=== PATIENT | female | born 2000 | race African-American/Black ===

== ENCOUNTER 2021-07-22 08:40 | Observation (INO) | payer BC ==
[~2021-07-22 08:40] MED LIST: ALBU17AE26 IH; ALBU2SYR3 PO
[2021-07-22 11:44] LABS: BILIRUBIN,URINE NEGATIVE (NEGATIVE); BLOOD, URINE NEGATIVE (NEGATIVE); COLOR,URINE YELLOW (YELLOW); GLUCOSE,URINE NEGATIVE (NEGATIVE); KETONES,URINE NEGATIVE (NEGATIVE); LEUKOCYTE ESTERASE ,URINE NEGATIVE (NEGATIVE); NITRITE, URINE NEGATIVE (NEGATIVE); PROTEIN URINE NEGATIVE (NEGATIVE); UROBILINOGEN,URINE 0.2 (0.2-1.0)
[2021-07-22 11:58] LABS: CLARITY/URINE CLEAR (CLEAR)
[2021-07-22] MEDS ORDERED: ACETAMINOPHEN 325 MG TABLET PO ONE (12:00)
[2021-07-22] MEDS ORDERED: ACETAMINOPHEN 325 MG TABLET ONE (12:05)
== END 2021-07-22 12:50 | disposition home or self-care (01) ==
LOC: SPU 08:40
PROVIDERS: ADMIT Obstetrics & Gynecology; ATTEND Obstetrics & Gynecology
DX: O26.892 Other specified pregnancy related conditions, second trimester (principal); R10.9 Unspecified abdominal pain; O36.8120 Decreased fetal movements, second trimester, not applicable or unspecified; Z3A.27 27 weeks gestation of pregnancy
CPT/HCPCS: 81003; G0378; 81002

== ENCOUNTER 2021-10-18 19:55 | Emergency (ER) | payer BC ==
[~2021-10-18] VITALS: Ht 154.9 cm; Wt 77.1 kg
[2021-10-18] MEDS ORDERED: ALBUTEROL SULFATE 0.083% 2.5 MG/3 ML VIAL.NEB INH ONE ×2 (20:12→20:15)
[2021-10-18] MEDS ORDERED: IPRATROPIUM BROM 0.5 MG/2.5 ML VIAL.NEB (ATROVENT) INH ONE ×2 (20:12→20:15)
[2021-10-18] MEDS ORDERED: predniSONE 20 MG TABLET PO ONE (20:15)
[2021-10-18] MEDS ORDERED: ALBMDI INH (20:56)
[2021-10-18] MEDS ORDERED: PRED20TA PO (20:56)
[2021-10-18 21:35] VITALS: BP_SYST 105
== END 2021-10-18 21:35 | disposition home or self-care (01) ==
LOC: SED 19:55
DX: O26.893 Other specified pregnancy related conditions, third trimester (principal); J45.901 Unspecified asthma with (acute) exacerbation; Z3A.40 40 weeks gestation of pregnancy; Z79.899 Other long term (current) drug therapy
CPT/HCPCS: 71045; 87426; 94640; 99284; J7512; J7613; 36415